=== PATIENT | female | born 1965 | race Caucasian/White ===

== ENCOUNTER 2017-05-19 09:13 | Emergency (ER) | payer OTHER ==
[2017-05-19 09:14] VITALS: BMI 35.3
[2017-05-19 09:23] VITALS: BP 134/79; PULSE 75; RESP 20; TEMP 98
[2017-05-19 09:28] VITALS: O2SAT 98
--- NOTE | 2017-05-19 09:52 | ED PDOC ---
Upper Extremity Pain/Injury Time Seen by Provider: 05/19/17 09:43 Chief Complaint (Nursing): Upper Extremity Problem/Injury Chief Complaint (Provider): L/shoulder pain History Per: Patient History/Exam Limitations: no limitations Onset/Duration Of Symptoms: Hrs Current Symptoms Are (Timing): Still Present Quality: "Pain" Severity: Moderate Torso/Back (Pic): 1 - Tenderness Exacerbating Factor(s): Movement Additional Complaint(s): 52 y/o F with PMhx of breast cancer s/p Sx and Chemo 4 y/a, presents c/o L/ shoulder pain for he past 2 hours. Patient had similar episode 1 month ago that resolved spontaneously. 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 Pain is moderate, located from posterior neck to L/shoulder area, worsen with movements of the shoulder and neck or with deep breaths. Denies paresthesias, CP, palpitations, SOB, headaches , vision changes. Patient took advil before coming to ED with no improvement. Past Medical History Vital Signs: Last Vital Signs Temp 98.0 F 05/19/17 09:22 Pulse 75 05/19/17 09:22 Resp 20 05/19/17 09:22 BP 134/79 05/19/17 09:22 Pulse Ox 98 05/19/17 09:26 - Medical History PMH: HTN, Malignancy (h/o breast cancer) - Surgical History Other surgeries: Mastectomy - Family History Family History: States: Unknown Family Hx - Home Medications Home Medications: Ambulatory Orders Medication Instructions Recorded Naproxen [Naprosyn] 500 mg PO BID PRN #16 tab 06/18/16 - Allergies Allergies/Adverse Reactions: Allergies Allergy/AdvReac Type Severity Reaction Status Date / Time No Known Allergies Allergy Verified 06/18/16 09:26 Review of Systems ROS Statement: Except As Marked, All Systems Reviewed And Found Negative Musculoskeletal: Positive for: Neck Pain, Shoulder Pain Physical Exam - Reviewed Nursing Documentation Reviewed: Yes - Physical Exam Appears: Positive for: Uncomfortable (due to pain) Head Exam: Positive for: ATRAUMATIC, NORMAL INSPECTION Skin: Positive for: Normal Color, Warm Eye Exam: Positive for: EOMI, PERRL Neck: Positive for: Pain On Movement Of Neck Cardiovascular/Chest: Positive for: Regular Rate, Rhythm. Negative for: Gallop , Murmur Respiratory: Positive for: Normal Breath Sounds. Negative for: Crackles, Wheezing Gastrointestinal/Abdominal: Positive for: Soft. Negative for: Tenderness, Distended, Guarding Extremity: Positive for: Other (Tenderness with palpation of trapezius muscle. Active L/Shoulder ROM slightly limited due to pain. Passive full ROM). Negative for: Pedal Edema, Calf Tenderness Neurologic/Psych: Positive for: Alert, Oriented. Negative for: Motor/Sensory Deficits - ECG O2 Sat by Pulse Oximetry: 98 - Progress ED Course And Treament: Patient pain almost resolved with Toradol, Tylenol and Lidoderm patch. Shoulder Xray shows O/A changes but no fx or dislocations Medical Decision Making Medical Decision Makin52 y/o F presents c/o L/shoulder pain Acute L/Shoulder pain Most likely trapezius strain EKG: ACS ruled out Shoulder Xray stat Toradol IM for pain Disposition - Clinical Impression Clinical Impression: Trapezius muscle spasm - Patient ED Disposition Is Patient to be Admitted: No - Disposition Disposition: Routine/Home Disposition Time: 12:05 Condition: IMPROVED Additional Instructions: F/U with PMD in 2-3 days If worsening gof the symptoms, CP, SOB, numbness or tingling or any other complains return to ED Instructions: Muscle Strain (ED) Forms: [facility] (Maltese) Print Language: LATVIAN
[2017-05-19] MEDS ORDERED: Lidocaine 5% Patch TD ONE (11:12)
--- NOTE | 2017-05-19 11:52 | RAD ---
PROCEDURE: Radiographs of the Left Shoulder HISTORY: Acute L/shoulder pain COMPARISON: No prior. FINDINGS: BONES: Normal. No fracture. No suspicious lytic or blastic change. JOINTS: Degenerative osteophytes seen related to the glenohumeral joint as well as the acromioclavicular joint. No separation or dislocation identified. SOFT TISSUES: Incidental note is made of right-sided life port catheter. OTHER FINDINGS: None. IMPRESSION: No acute fracture dislocation. Degenerative changes in the acromioclavicular clavicular and glenohumeral joints as per above.
== END 2017-05-19 12:26 | disposition home or self-care (01) ==
LOC: H.ER 09:13
DX: M62.838 Other muscle spasm (principal)

== ENCOUNTER 2017-12-29 16:44 | Emergency (ER) | payer OTHER ==
[2017-12-29 16:45] VITALS: BMI 35.3
--- NOTE | 2017-12-29 17:30 | ED PDOC ---
Syncope/Near Syncope/Dizziness Time Seen by Provider: 12/29/17 17:16 Chief Complaint (Nursing): Dizziness/Lightheaded Chief Complaint (Provider): Dizziniess History Per: Patient History/Exam Limitations: no limitations Onset/Duration Of Symptoms: Days (x3) Current Symptoms Are (Timing): Still Present Additional Complaint(s): 52 y/o female with a past medical history of breast cancer, who presents to the ED complaining of dizziness x3 days. Patient states the "room is spinning". Also complaining of a slight frontal headache. Denies fever, visual changes, paresthesias, or weakness. PMD: Provider TBD Past Medical History Reviewed: Historical Data, Nursing Documentation, Vital Signs Vital Signs: Last Vital Signs Temp 98.1 F 12/29/17 16:49 Pulse 85 12/29/17 16:49 Resp 17 12/29/17 16:49 BP 137/88 12/29/17 16:49 Pulse Ox 99 12/29/17 16:49 - Medical History PMH: HTN, Malignancy (h/o breast cancer) - Surgical History Surgical History: No Surg Hx - Family History Family History: States: Unknown Family Hx - Social History Current smoker - smoking cessation education provided: No Alcohol: None Drugs: Denies - Home Medications Home Medications: Ambulatory Orders Medication Instructions Recorded Naproxen [Naprosyn] 500 mg PO BID PRN #16 tab 06/18/16 Naproxen [Naprosyn] 500 mg PO BID PRN #14 tablet 05/19/17 Meclizine [Meclizine*] 25 mg PO Q6 PRN #20 tab 12/29/17 Nitrofurantoin Macrocrystals 100 mg PO BID #14 cap 12/29/17 [Macrobid] - Allergies Allergies/Adverse Reactions: Allergies Allergy/AdvReac Type Severity Reaction Status Date / Time No Known Allergies Allergy Verified 12/29/17 16:49 Review of Systems ROS Statement: Except As Marked, All Systems Reviewed And Found Negative Constitutional: Negative for: Fever, Weakness Eyes: Negative for: Vision Change Neurological: Positive for: Headache, Dizziness. Negative for: Other ( paresthesias) Physical Exam - Reviewed Nursing Documentation Reviewed: Yes Vital Signs Reviewed: Yes - Physical Exam Appears: Positive for: Non-toxic, No Acute Distress Head Exam: Positive for: ATRAUMATIC, NORMAL INSPECTION, NORMOCEPHALIC Skin: Positive for: Normal Color, Warm, Dry. Negative for: Rash Eye Exam: Positive for: EOMI, Normal appearance, PERRL Neck: Positive for: Normal, Painless ROM, Supple Cardiovascular/Chest: Positive for: Regular Rate, Rhythm. Negative for: Murmur Respiratory: Positive for: Normal Breath Sounds. Negative for: Respiratory Distress Gastrointestinal/Abdominal: Positive for: Normal Exam, Bowel Sounds, Soft. Negative for: Tenderness Back: Positive for: Normal Inspection. Negative for: L CVA Tenderness, R CVA Tenderness, Vertebral Tenderness Extremity: Positive for: Normal ROM. Negative for: Pedal Edema, Deformity Neurologic/Psych: Positive for: Alert, Oriented (x3). Negative for: Motor/ Sensory Deficits - Laboratory Results Result Diagrams: 12/29/17 17:14 12/29/17 17:14 - ECG Interpretation Of ECG: NSR @ 71, no ST-T changes. O2 Sat by Pulse Oximetry: 99 (RA) Pulse Ox Interpretation: Normal Medical Decision Making Medical Decision Making: Time: 17:24 Impression: Vertigo Initial Plan: --CT Head w/o contrast --EKG --CMP --Urine dipstick --Urine --CBC --Meclizine 50mg PO --Urinalysis --Reevaluation Scribe Attestation: Documented by Prashant Bocanegra, acting as a scribe for Deysi Betancourt MD. Provider Scribe Attestation: All medical record entries made by the Scribe were at my direction and personally dictated by me. I have reviewed the chart and agree that the record accurately reflects my personal performance of the history, physical exam, medical decision making, and the department course for this patient. I have also personally directed, reviewed, and agree with the discharge instructions and disposition. Disposition - Clinical Impression Clinical Impression: Vertigo, UTI (urinary tract infection) - Disposition Referrals: [facility] [Outside] [facility] [Outside] Disposition: Routine/Home Disposition Time: 18:15 Condition: IMPROVED Prescriptions: Meclizine [Meclizine*] 25 mg PO Q6 PRN #20 tab PRN Reason: Dizziness Nitrofurantoin Macrocrystals [Macrobid] 100 mg PO BID #14 cap Instructions: Vertigo (a Type of Dizziness), Urinary Tract Infections in Adults Forms: [facility] (Hungarian) Print Language: NORWEGIAN
[2017-12-29 17:55] LABS: SQUAMOUS EPITHIAL 4 /hpf (0-5); URINE BACTERIA RARE (<OCC); URINE BILIRUBIN NEGATIVE (NEGATIVE); URINE BLOOD NEGATIVE (NEGATIVE); URINE CLARITY SLIGHTY-CLOUDY (Clear); URINE COLOR YELLOW (YELLOW); URINE GLUCOSE (UA) NEG (Normal); URINE HYALINE CAST 0-2 /hpf (0-2); URINE LEUKOCYTE ESTERASE MOD Leu/uL (Negative); URINE PROTEIN NEGATIVE (NEGATIVE); URINE UROBILINOGEN 0.2-1.0 mg/dL (0.2-1.0)
[2017-12-29 17:56] LABS: BASO % 0.5 % (0.0-2.0); EOS # 0.1 K/uL (0.0-0.7); EOS % 1.2 % (0.0-4.0); HEMOGLOBIN 14.1 g/dL (12.0-16.0); LYMPH # 2.9 K/uL (1.0-4.3); LYMPH % 41.8 % (20.0-40.0); MEAN CELL VOLUME 81.5 fl (81.0-99.0); MEAN CORPUSCULAR HEMOGLOBIN 27.4 pg (27.0-31.0); MEAN CORPUSCULAR HGB CONC 33.6 g/dL (33.0-37.0); MEAN PLATELET VOLUME 10.3 fl (7.2-11.7); MONO # 0.3 K/uL (0.0-0.8); MONO % 4.8 % (0.0-10.0); NEUT # 3.6 K/uL (1.8-7.0); NEUT % 51.7 % (50.0-75.0); NRBC % 0.2 % (0.0-0.0); RBC 5.14 Mil/uL (3.80-5.20); RED CELL DISTRIBUTION WIDTH 14.5 % (11.5-14.5)
[2017-12-29 18:03] LABS: ALB/GLOB RATIO 1.1 (1.0-2.1); ALBUMIN 4.2 g/dL (3.5-5.0); ALT/SGPT 29 U/L (9-52); AST/SGOT 18 U/L (14-36); BLOOD UREA NITROGEN 17 mg/dl (7-17); CALCIUM 9.5 mg/dL (8.4-10.2); GFR AFRICAN-AMERICAN > 60; GFR NON-AFRICAN AMERICAN > 60
--- NOTE | 2017-12-29 18:13 | CT ---
PROCEDURE: CT scan brain dated 12/29/2017. HISTORY: Vertigo COMPARISON: Comparison made with prior study 01/21/2015. . . TECHNIQUE: Axial computed tomography images were obtained through the head/brain without intravenous contrast. Radiation dose: Total exam DLP = 777.41 mGy-cm. This CT exam was performed using one or more of the following dose reduction techniques: Automated exposure control, adjustment of the mA and/or kV according to patient size, and/or use of iterative reconstruction technique. FINDINGS: HEMORRHAGE: No acute parenchymal, subarachnoid or extra-axial hemorrhage. BRAIN: No evidence of large acute infarct. Note that the possibility of a small hyperacute infarct cannot be completely excluded and if there is any concern, consider followup MRI. No obvious parenchymal nor extra-axial mass or collection seen on this noncontrast study. There appears to be some mild localized bilateral superior frontal cortical atrophic changes VENTRICLES: No obstructive hydrocephalus. Re- demonstrated is minor asymmetry of the lateral ventricles left-sided which is slightly larger than the right felt to represent an anatomic variation CALVARIUM: There are no acute calvarial fractures. . PARANASAL SINUSES: Unremarkable as visualized. No significant inflammatory changes. MASTOID AIR CELLS: Unremarkable as visualized. No inflammatory changes. OTHER FINDINGS: None. IMPRESSION: No acute intracranial hemorrhage. Mild localized of bilateral superior frontal cortical atrophic changes.
[2017-12-29 18:52] VITALS: BP 127/76; PULSE 78; RESP 19; TEMP 97.6; O2SAT 98
--- NOTE | 2017-12-30 10:02 | CARD ---
APPROVED REPORT EKG Measurement Heart [id number] <Conclusion> Normal sinus rhythm with sinus arrhythmia Normal ECG
== END 2017-12-29 18:52 | disposition home or self-care (01) ==
LOC: H.ER 16:44
DX: R42 Dizziness and giddiness (principal); N39.0 Urinary tract infection, site not specified; Z85.3 Personal history of malignant neoplasm of breast; I10 Essential (primary) hypertension

== ENCOUNTER 2018-01-03 16:38 | Emergency (ER) | payer OTHER ==
[2018-01-03 16:38] VITALS: BMI 35.3
[2018-01-03 17:09] VITALS: BP 130/79; RESP 18; TEMP 98.4; O2SAT 99
[2018-01-03] MEDS ORDERED: Silver Nitrate Topical - Stick TOP ONE (18:27)
[2018-01-03 19:07] LABS: BASO % 0.5 % (0.0-2.0); EOS # 0.1 K/uL (0.0-0.7); HEMOGLOBIN 13.5 g/dL (12.0-16.0); LYMPH # 2.6 K/uL (1.0-4.3); LYMPH % 31.1 % (20.0-40.0); MEAN CELL VOLUME 82.1 fl (81.0-99.0); MEAN CORPUSCULAR HGB CONC 34.2 g/dL (33.0-37.0); MEAN PLATELET VOLUME 10.2 fl (7.2-11.7); MONO # 0.5 K/uL (0.0-0.8); MONO % 5.8 % (0.0-10.0); NEUT # 5.2 K/uL (1.8-7.0); NEUT % 61.6 % (50.0-75.0); NRBC % 0.1 % (0.0-0.0); RBC 4.8 Mil/uL (3.80-5.20); RED CELL DISTRIBUTION WIDTH 14.2 % (11.5-14.5); WHITE BLOOD COUNT 8.5 K/uL (4.8-10.8)
[2018-01-03 19:21] LABS: PARTIAL THROMBOPLASTIN TIME 33.2 Seconds (25.6-37.1); PROTHROMBIN TIME 11.1 Seconds (9.8-13.1)
[2018-01-03] MEDS ORDERED: Silver Nitrate Topical - Stick ONE (19:25)
--- NOTE | 2018-01-03 19:59 | ED PDOC ---
HPI: General Adult Time Seen by Provider: 01/03/18 17:12 Chief Complaint (Nursing): ENT Problem History Per: Patient, Family (daughter) Additional Complaint(s): Pt. states earlier this afternoon she developed atraumatic L sided nosebleeding. While waiting in ED waiting room bleeding stopped. Also reports feeling dizzy since the bleeding stopped. Denies headache, chest pain, palpitations, hx of anemia, anticoagulant use, fever, nasal congestion. Past Medical History Reviewed: Historical Data, Nursing Documentation, Vital Signs Vital Signs: Last Vital Signs Temp 98.4 F 01/03/18 17:06 Pulse 70 01/03/18 20:17 Resp 18 01/03/18 17:06 BP 130/79 01/03/18 17:06 Pulse Ox 99 01/03/18 20:17 - Medical History PMH: HTN, Malignancy (h/o breast cancer) - Family History Family History: States: No Known Family Hx - Home Medications Home Medications: Ambulatory Orders Medication Instructions Recorded Naproxen [Naprosyn] 500 mg PO BID PRN #16 tab 06/18/16 Naproxen [Naprosyn] 500 mg PO BID PRN #14 tablet 05/19/17 Meclizine [Meclizine*] 25 mg PO Q6 PRN #20 tab 12/29/17 Nitrofurantoin Macrocrystals 100 mg PO BID #14 cap 12/29/17 [Macrobid] - Allergies Allergies/Adverse Reactions: Allergies Allergy/AdvReac Type Severity Reaction Status Date / Time No Known Allergies Allergy Verified 12/29/17 16:49 Review of Systems ROS Statement: Except As Marked, All Systems Reviewed And Found Negative Physical Exam - Physical Exam Appears: Positive for: Well, Non-toxic, No Acute Distress Head Exam: Positive for: ATRAUMATIC, NORMAL INSPECTION, NORMOCEPHALIC Skin: Positive for: Normal Color, Warm. Negative for: Rash Eye Exam: Positive for: Normal appearance. Negative for: Nystagmus ENT: Positive for: Pharynx Is (clear without any blood), Other (bleeding site identified in L anterior nasal septum; no active bleeding in b/l nostrils; no septal hematoma b/l) Cardiovascular/Chest: Positive for: Regular Rate, Rhythm. Negative for: Tachycardia Respiratory: Positive for: CNT, Normal Breath Sounds Neurologic/Psych: Positive for: Alert, Oriented, Gait (steady, unassisted). Negative for: Aphasia, Facial Droop - Laboratory Results Result Diagrams: 01/03/18 19:01 01/03/18 19:01 - ECG ECG: Positive for: Interpreted By [place] ECG Rhythm: Positive for: Sinus Rhythm. Negative for: ST/T Changes Rate: 70 O2 Sat by Pulse Oximetry: 99 - Progress ED Course And Treament: Labs, EKG ordered. 2018 On re-evaluation, pt. without any bleeding in ED. Reports dizziness has completely resolved. Gait steady, unassisted. Procedures - Time-Out Type of Procedure: L nostril hemostasis Site of Procedure: L nostril - Additional Procedures Progress: Silver nitrate applied on L anterior nasal septum. Pt. tolerated procedure well. No bleeding in ED. Disposition - Clinical Impression Clinical Impression: Epistaxis - Patient ED Disposition Is Patient to be Admitted: No - Disposition Referrals: Domingo Hernandes MD [Staff Provider] - [facility] [Outside] Disposition: Routine/Home Disposition Time: 20:19 Condition: IMPROVED Additional Instructions: Return to ED immediately if bleeding or dizziness reoccurs. Instructions: Nosebleeds (DC) Forms: [facility] (Yakut) Print Language: UPPER SORBIAN
[2018-01-03 20:05] LABS: ALB/GLOB RATIO 1.2 (1.0-2.1); ALBUMIN 4.2 g/dL (3.5-5.0); ALT/SGPT 27 U/L (9-52); AST/SGOT 20 U/L (14-36); BLOOD UREA NITROGEN 16 mg/dl (7-17); CALCIUM 9.4 mg/dL (8.4-10.2); GFR AFRICAN-AMERICAN > 60; GFR NON-AFRICAN AMERICAN > 60
[2018-01-03 20:17] VITALS: PULSE 70
--- NOTE | 2018-01-04 19:41 | CARD ---
APPROVED REPORT EKG Measurement Heart [id number] <Conclusion> Normal sinus rhythm Normal ECG
== END 2018-01-03 20:41 | disposition home or self-care (01) ==
LOC: H.ER 16:38
DX: R04.0 Epistaxis (principal); I10 Essential (primary) hypertension; Z85.3 Personal history of malignant neoplasm of breast

== ENCOUNTER 2018-08-19 09:35 | Emergency (ER) | payer SELFPAY ==
[2018-08-19 09:38] VITALS: BMI 28.9
[2018-08-19 09:40] VITALS: BP 146/83; PULSE 78; RESP 16; TEMP 98; O2SAT 98
--- NOTE | 2018-08-19 09:50 | ED PDOC ---
HPI: Female Pain Time Seen by Provider: 08/19/18 09:45 History Per: Patient Onset/Duration Of Symptoms: Days (2) Current Symptoms Are (Timing): Still Present Severity: Mild Pain Scale Rating Of: 2 Quality Of Discomfort: Burning Associated Symptoms: denies: Fever, Chills Alleviating Factors: None Additional Complaint(s): Dysuria, frequency and hematuria x 2 days. denies fever, back pain or vomiting Past Medical History Vital Signs: Last Vital Signs Temp 98 F 08/19/18 09:38 Pulse 78 08/19/18 09:38 Resp 16 08/19/18 09:38 BP 146/83 08/19/18 09:38 Pulse Ox 98 08/19/18 09:38 - Medical History PMH: HTN, Malignancy (h/o breast cancer) - Family History Family History: States: Unknown Family Hx - Home Medications Home Medications: Ambulatory Orders Medication Instructions Recorded Naproxen [Naprosyn] 500 mg PO BID PRN #16 tab 06/18/16 Naproxen [Naprosyn] 500 mg PO BID PRN #14 tablet 05/19/17 Meclizine [Meclizine*] 25 mg PO Q6 PRN #20 tab 12/29/17 Nitrofurantoin Macrocrystals 100 mg PO BID #14 cap 12/29/17 [Macrobid] Sulfamethoxazole/Trimethoprim 1 tab PO BID #20 tab 08/19/18 [Bactrim DS 800 mg-160 mg] - Allergies Allergies/Adverse Reactions: Allergies Allergy/AdvReac Type Severity Reaction Status Date / Time No Known Allergies Allergy Verified 12/29/17 16:49 Review of Systems Constitutional: Negative for: Fever, Chills Gastrointestinal: Negative for: Nausea, Vomiting, Abdominal Pain Genitourinary Female: Positive for: Dysuria, Frequency, Hematuria Musculoskeletal: Negative for: Back Pain Physical Exam - Physical Exam Appears: Positive for: Non-toxic, No Acute Distress Skin: Positive for: Normal Color, Warm, DRY Gastrointestinal/Abdominal: Positive for: Bowel Sounds, Soft. Negative for: Tenderness Back: Negative for: L CVA Tenderness, R CVA Tenderness - ECG O2 Sat by Pulse Oximetry: 98 Disposition - Clinical Impression Clinical Impression: UTI (urinary tract infection) - Patient ED Disposition Is Patient to be Admitted: No Counseled Patient/Family Regarding: Studies Performed, Diagnosis, Need For Followup, Rx Given - Disposition Referrals: [facility] [Outside] Disposition: Routine/Home Disposition Time: 09:50 Condition: FAIR Prescriptions: Sulfamethoxazole/Trimethoprim [Bactrim DS 800 mg-160 mg] 1 tab PO BID #20 tab Instructions: Urinary Tract Infections in Adults Print Language: MONGOLIAN
== END 2018-08-19 10:30 | disposition home or self-care (01) ==
LOC: H.ER 09:35
DX: N39.0 Urinary tract infection, site not specified (principal)